=== PATIENT | female | born 2000 | race Two or more races ===

== ENCOUNTER 2022-09-20 12:32 | Emergency (ER) | payer OTHER ==
[~2022-09-20] VITALS: Ht 157.5 cm; Wt 65.8 kg
[2022-09-20] MEDS ORDERED: MUPIROCIN15 GM TOP (17:58)
[2022-09-20] MEDS ORDERED: VALACYCLOVIR1000 MG PO (17:58)
== END 2022-09-20 19:50 | disposition home or self-care (01) ==
LOC: ER 12:32 → EMR PED 12:36
DX: N89.8 Other specified noninflammatory disorders of vagina (principal); N94.9 Unspecified condition associated with female genital organs and menstrual cycle

== ENCOUNTER → 2025-03-09 | Emergency (ER) | payer OTHER ==
[~2025-03-09] VITALS: Ht 157.5 cm; Wt 68.0 kg
[~2025-03-09] MED LIST: BENZONATATE 100 MG CAPSULE PO STA; GILTUSS HONEY118 ML PO; MUPIROCIN15 GM TOP; VALACYCLOVIR1000 MG PO
[2025-03-09 17:15] LABS: BASO % 0.2 % (0.1-1.2); EOS # 0.09 (0.04-0.54); HEMATOCRIT 41.3 % (34.1-44.9); HEMOGLOBIN 13.9 g/dL (11.2-15.7); LYMPH # 1.01 (1.18-3.74); LYMPH % 10.7 % (19.3-53.1); MEAN CORPUSCULAR HEMOGLOBIN 28.1 pg (25.6-32.2); MONO % 9.5 % (4.7-12.5); NEUT # 7.41 (1.56-6.13); NEUT % 78.3 % (34.0-71.1); PLATELET COUNT 209 K/uL (163-369); RED BLOOD COUNT 4.94 M/uL (3.93-5.22); RED CELL DISTRIBUTION WIDTH 13.1 % (11.6-14.4)
[2025-03-09 18:22] LABS: INFLUENZA A AG NEGATIVE (NEGATIVE); INFLUENZA B AG NEGATIVE (NEGATIVE)
[2025-03-09 18:27] LABS: COVID-19 AG NEGATIVE (NEGATIVE)
[2025-03-09 19:04] LABS: ALBUMIN 4.3 gm/dL (3.4-5.0); BILIRUBIN TOTAL 1.1 mg/dL (0.3-1.2); CALCIUM 9.2 mg/dL (8.5-10.1); CREATININE SERUM 0.88 mg/dL (0.55-1.02); GFR 80.35; GLOBULINA 4.5 G/DL (2.4-3.5); POTASSIUM 3.81 mEq/L (3.5-5.1); TOTAL PROTEIN 8.8 gm/dL (6.4-8.2)
== END | disposition home or self-care (01) ==
LOC: ER 13:45
PROVIDERS: General Practice; Preventive Medicine Public Health & General Preventive Medicine
DX: B34.9 Viral infection, unspecified (principal); Z20.822 Contact with and (suspected) exposure to COVID-19